=== PATIENT | male | born 1945 | race Caucasian/White ===

== ENCOUNTER 2018-11-11 19:49 | Emergency (ER) | payer SELFPAY ==
--- NOTE | 2018-11-11 19:59 | PHYS DOC ---
Adult General HPI HPI Patient is a 72 year old M who presents for cardiac arrest. Pt was apparently in the laundry room when he collapsed. Daughter started CPR. He has a heart history and has been exerting himself today. EMS arrived at 1904. On arrival here pt is pulseless and in asystole. Review of Systems Review of Systems Unable to obtain due to pt condition All other systems were reviewed and found to be within normal limits, except as documented in this note. Physical Exam Physical Exam Constitutional: Unconscious HENT: Normocephalic, atraumatic Eyes: Pupils 4 mm and nonreactive Neck: atraumatic Cardiovascular: no heart sounds Lungs & Thorax: Bilateral breath sounds clear with BVM Abdomen: Soft, mildly distended Skin: cool to touch Extremities: cool to touch, pulseless Neurologic: Unconscious EKG EKG [] Radiology/Procedures Radiology/Procedures [] Course & Med Decision Making Course & Med Decision Making Pertinent Labs and Imaging studies reviewed. (See chart for details) 72 y/o M presents for cardiac arrest, asystole on arrival. ACLS continued. ETT confirmed with end tidal Co2 detector. Bicarb and multiple epis given. No change - persistent asystole. Time of called - see RN code sheet for details. Critical care time 45 min. Informed patient's family of his with RN Antonia present. Daiana Disclaimer Daiana Disclaimer This electronic medical record was generated, in whole or in part, using a voice recognition dictation system. Departure Departure Impression: Primary Impression: Cardiac arrest Disposition: 20 Condition: MATT DOMINGO MD November 11, 2018 19:59
[2018-11-12] MEDS ORDERED: SODIUM BICARB ADULT 8.4% 50 MEQ/50 ML DISP.SYRIN. ONE (00:30)
[2018-11-12] MEDS ORDERED: EPINEPHrine SYRINGE 1 MG/10 ML SYRINGE ONE (00:30)
== END 2018-11-12 00:55 | disposition expired ==
LOC: ER 19:49
DX: I46.9 Cardiac arrest, cause unspecified (principal); R40.2440 Other coma, without documented Glasgow coma scale score, or with partial score reported, unspecified time; R14.0 Abdominal distension (gaseous)
CPT/HCPCS: 31500; 92950; 99291; J0171